=== PATIENT | female | born 1960 | race African-American/Black ===

== ENCOUNTER 2021-03-01 12:27 | Emergency (ER) | payer SELFPAY ==
[2021-03-01] MEDS ORDERED: Ketorolac Tromethamine 30 MG/ML VIAL ONE (13:34)
[2021-03-01] MEDS ORDERED: Ondansetron PF 4 MG/2 ML Vial ONE (13:34)
[2021-03-01 23:45] LABS: SARS-CoV-2 PCR by NAA Not Detected (NotDetected)
== END 2021-03-01 14:53 | disposition home or self-care (01) ==
LOC: ERS 12:27 → EEVIPCON 12:27 → ERS 14:53
DX: R51.9 Headache, unspecified (principal); R19.7 Diarrhea, unspecified; R11.2 Nausea with vomiting, unspecified; R53.81 Other malaise; Z20.822 Contact with and (suspected) exposure to COVID-19; I10 Essential (primary) hypertension; F17.210 Nicotine dependence, cigarettes, uncomplicated; Z79.899 Other long term (current) drug therapy
CPT/HCPCS: 96374; 96375; J1885; J2405; U0003; U0005